=== PATIENT | male | born 1985 | race Caucasian/White ===

== ENCOUNTER 2019-02-26 01:27 | Inpatient (IN) | payer MEDICAID ==
[~2019-02-26] VITALS: Ht 170.2 cm; Wt 69.4 kg
[~2019-02-26 01:27] MED LIST: IBUP-2028 PO; IBUP-2437
[2019-02-26] MEDS ORDERED: SODIUM CHLORIDE 0.9% 1,000 ML IV ONE (03:09)
[2019-02-26 03:32] LABS: CHLORIDE 106 mEq/L (98-107)
[2019-02-26 03:37] LABS: ETHANOL BLOOD < 10 mg/dL
[2019-02-26 03:52] LABS: BASOPHILS % 0.4 % (0.0-2.0); EOSINOPHILS % 0.4 % (0.0-5.0); HEMATOCRIT. 41.3 % (42.0-52.0); HEMOGLOBIN. 14.2 g/dL (14.0-18.0); LYMPHOCYTES % 26.9 % (20.0-50.0); MEAN CORPUSCULAR HEMOGLOBIN 33.4 pg (28.0-32.0); MEAN CORPUSCULAR VOLUME 97.4 fL (80.0-94.0); MEAN PLATELET VOLUME 7.6 fl (7.4-10.4); MONOCYTES % 5.1 % (2.0-8.0); NEUTROPHILS % 67.2 % (40.0-76.0); PLATELET 311 x1000/uL (130-400); RED BLOOD CELL COUNT 4.24 mill/uL (4.7-6.1); RED CELL DISTRIBUTION WIDTH 12.7 % (11.6-14.6)
[2019-02-26 04:41] LABS: CLARITY URINE CLEAR (CLEAR); COLOR URINE YELLOW (YELLOW); KETONES URINE NEGATIVE (NEGATIVE); LEUKOCYTE ESTERASE URINE NEGATIVE (NEGATIVE); NITRITE URINE NEGATIVE (NEGATIVE); OCCULT BLOOD URINE NEGATIVE (NEGATIVE); PROTEIN URINE NEGATIVE (NEGATIVE); SPECIFIC GRAVITY URINE 1.013 (1.005-1.030)
[2019-02-26 04:49] LABS: *AMPHETAMINES SCREEN URINE PRESUMTIVE POSITIVE (NEGATIVE); *BARBITURATES SCREEN URINE NEGATIVE (NEGATIVE); *BENZODIAZEPINES SCREEN URINE NEGATIVE (NEGATIVE); *COCAINE SCREEN URINE NEGATIVE (NEGATIVE)
[2019-02-26 04:50] LABS: CANNABINOID URINE SCREEN NEGATIVE (NEGATIVE); METHADONE URINE SCREEN NEGATIVE (NEGATIVE); OPIATES URINE SCREEN NEGATIVE (NEGATIVE); PHENCYCLIDINE URINE SCREEN NEGATIVE (NEGATIVE)
[2019-02-26 10:15] VITALS: BP 103/60
[2019-02-26 10:36] VITALS: BP 103/60
[2019-02-26] MEDS ORDERED: ACETAMINOPHEN 325MG TABLET PO PRN (11:45)
[2019-02-26] MEDS ORDERED: DOCUSATE SODIUM 100MG CAPSULE PO PRN (11:45)
[2019-02-26] MEDS ORDERED: ONDANSETRON HCL 4MG/2ML INJ IV PRN (11:45)
[2019-02-26 12:00] VITALS: BP 104/68
[2019-02-26] MEDS ORDERED: POTASSIUM CHLORIDE 20MEQ TABLET SR PO NR (15:30)
[2019-02-26] MEDS: SODIUM CHLORIDE 0.9% 1,000 ML IV SCH (15:40)
[2019-02-26 16:00] VITALS: BP 107/59
[2019-02-26 20:59] VITALS: BP 108/57
[2019-02-26] MEDS: HEPARIN 5000 UNITS/ML VIAL SUBCUT SCH (21:21)
[2019-02-27] VITALS: BP 112/62
[2019-02-27 04:00] VITALS: BP 118/76
[2019-02-27] MEDS: SODIUM CHLORIDE 0.9% 1,000 ML IV SCH ×3 (04:08→17:58)
[2019-02-27 06:13] LABS: CHLORIDE 111 mEq/L (98-107)
[2019-02-27 06:27] LABS: BASOPHILS % 1.2 % (0.0-2.0); EOSINOPHILS % 2.7 % (0.0-5.0); HEMATOCRIT. 39.6 % (42.0-52.0); HEMOGLOBIN. 13.7 g/dL (14.0-18.0); LYMPHOCYTES % 38.1 % (20.0-50.0); MEAN CORPUSCULAR HEMOGLOBIN 33.6 pg (28.0-32.0); MEAN CORPUSCULAR VOLUME 97.2 fL (80.0-94.0); MEAN PLATELET VOLUME 7.7 fl (7.4-10.4); MONOCYTES % 5.7 % (2.0-8.0); NEUTROPHILS % 52.3 % (40.0-76.0); PLATELET 284 x1000/uL (130-400); RED BLOOD CELL COUNT 4.07 mill/uL (4.7-6.1); RED CELL DISTRIBUTION WIDTH 12.8 % (11.6-14.6)
[2019-02-27 08:00] VITALS: BP 117/72
[2019-02-27] MEDS: ASPIRIN 81MG EC TABLET PO SCH (09:43)
[2019-02-27 12:03] VITALS: BP 112/52
[2019-02-27] MEDS: HEPARIN 5000 UNITS/ML VIAL SUBCUT SCH ×2 (14:00→15:01)
[2019-02-27 16:00] VITALS: BP 108/61
[2019-02-27 20:00] VITALS: BP 123/61
[2019-02-28] VITALS: BP 120/79
[2019-02-28] MEDS: HEPARIN 5000 UNITS/ML VIAL SUBCUT SCH ×2 (00:32→06:48)
[2019-02-28 04:00] VITALS: BP 103/55
[2019-02-28 04:45] VITALS: BP 120/55
[2019-02-28 05:30] LABS: CHLORIDE 112 mEq/L (98-107)
[2019-02-28 05:35] LABS: BASOPHILS % 0.5 % (0.0-2.0); EOSINOPHILS % 2.2 % (0.0-5.0); HEMATOCRIT. 38.5 % (42.0-52.0); HEMOGLOBIN. 13.3 g/dL (14.0-18.0); LYMPHOCYTES % 39.2 % (20.0-50.0); MEAN CORPUSCULAR HEMOGLOBIN 33.8 pg (28.0-32.0); MEAN PLATELET VOLUME 7.7 fl (7.4-10.4); MONOCYTES % 7.2 % (2.0-8.0); NEUTROPHILS % 50.9 % (40.0-76.0); PLATELET 280 x1000/uL (130-400); RED BLOOD CELL COUNT 3.93 mill/uL (4.7-6.1); RED CELL DISTRIBUTION WIDTH 12.9 % (11.6-14.6)
[2019-02-28] MEDS: SODIUM CHLORIDE 0.9% 1,000 ML IV SCH (07:20)
[2019-02-28 08:00] VITALS: BP 92/98
[2019-02-28] MEDS: ASPIRIN 81MG EC TABLET PO SCH (09:33)
[2019-02-28 12:00] VITALS: BP 98/51
[2019-02-28 12:05] VITALS: BP 102/59
== END 2019-02-28 17:13 | disposition home or self-care (01) | DRG 52 ==
LOC: ER 01:51 → 7WST 06:13 → EDBEDREQ 06:17 → EDBEDREQTM 06:17 → ENRESERV 08:13
PROVIDERS: ADMIT Internal Medicine; ATTEND Internal Medicine
DX: G92 Toxic encephalopathy (principal); G90.8 Other disorders of autonomic nervous system; M48.02 Spinal stenosis, cervical region; G82.50 Quadriplegia, unspecified; E86.0 Dehydration; E87.6 Hypokalemia; F15.10 Other stimulant abuse, uncomplicated; F17.200 Nicotine dependence, unspecified, uncomplicated; I10 Essential (primary) hypertension; I25.10 Atherosclerotic heart disease of native coronary artery without angina pectoris; Z79.82 Long term (current) use of aspirin; M47.812 Spondylosis without myelopathy or radiculopathy, cervical region; M47.816 Spondylosis without myelopathy or radiculopathy, lumbar region; R07.89 Other chest pain; R63.4 Abnormal weight loss
CPT/HCPCS: 36415; 70551; 71045; 72141; 72148; 80048; 80305; 80307; 80320; 80329; 81003; 83605; 83735; 84484; 93005; 93306; 97162; 97166; 99291; J1644; J7030; G0480